=== PATIENT | male | born 1960 ===

== ENCOUNTER → 2023-10-12 | Emergency (ER) | payer BC, OTHER ==
[2023-10-12 13:50] LABS: Absolute Eosinophils 0.1 K/uL (0-0.5); Absolute Lymphocytes (CBC) 1.3 K/uL (0.7-4.9); Absolute Monocytes 0.7 K/uL (0.1-1.3); Absolute Neutrophil 6.8 K/uL (1.8-8.0); Basophils % 0.3 % (0-1.3); Eosinophils % 0.9 % (0-4.4); Hematocrit 43.5 % (39.6-49.0); Lymphocytes % 14.3 % (15.3-44.8); MCH 32.7 pg (27.0-35.0); MCHC 34.6 g/dL (32.0-36.0); MCV 94.6 fL (80-100); MPV 7.2 fL (7.6-11.3); Monocytes % 7.9 % (3.3-12.3); Neutrophils % 76.6 % (41.7-73.7); Platelets 353 thou/uL (152-406); Red Cell Distribution Width 12.9 % (12.1-15.2)
[2023-10-12 14:07] LABS: PT Prothrombin Time 11.4 SECONDS (9.5-12.5); PTT, Activated Partial Thromb 32.6 SECONDS (24.3-36.9); Protime INR 1.04
[2023-10-12 14:14] LABS: Albumin 4.1 g/dL (3.4-5.0); Albumin/Globulin Ratio 1.3 (1.1-1.8); Anion Gap 6.8 mEq/L (5.0-15.0); Bilirubin Direct 0.2 mg/dL (0-0.2); Bilirubin Indirect, Calculated 0.1 mg/dL (0.2-0.8); Bilirubin Total 0.3 mg/dL (0.2-1.0); Globulin 3.1 g/dL (2.3-3.5); Magnesium 2.2 mg/dL (1.6-2.4); Potassium 3.8 mEq/L (3.5-5.1); Protein, Total 7.2 g/dL (6.4-8.2); Troponin High Sensitivity 3.3 pg/mL (<58.9)
--- NOTE | 2023-10-12 14:38 | RAD REPORT ---
EXAM DESCRIPTION: CTAbdomen Pelvis W Contrast - 10/12/2023 2:29 pm CLINICAL HISTORY: Abdominal pain. ABD PAIN COMPARISON: No comparisons TECHNIQUE: Biphasic CT imaging of the abdomen and pelvis was performed with 100 ml non-ionic IV cont rast. All CT scans are performed using dose optimization technique as appropriate and may include automated exposure control or mA/KV adjustment according to patient size. FINDINGS: The lung bases are clear. The liver, spleen, pancreas, right adrenal gland and kidneys are within normal limits. Mild thickenin g of the left adrenal gland is present measuring up to 12 mm. No bowel obstruction, free air, free fluid or abscess. The appendix is normal. No evidence of signi ficant lymphadenopathy. Chronic bilateral spondylolysis at L5-S1 with mild anterolisthesis. IMPRESSION: No acute intra-abdominal or pelvic finding.
[2023-10-12 15:03] LABS: Urine Bilirubin NEGATIVE (Negative); Urine Blood Negative (Negative); Urine Clarity Clear (Clear); Urine Color Colorless (Yellow); Urine Glucose NEGATIVE (Negative); Urine Ketones NEGATIVE (Negative); Urine Microscopic Reflex YN NO UMIC; Urine Nitrite NEGATIVE (Negative); Urine Protein NEGATIVE (Negative); Urine Urobilinogen Normal (Normal); Urine pH 5.5 (5.0-7.0)
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
[2023-10-12 16:23] VITALS: BP 150/89; TEMP 97.1; O2SAT 100
--- NOTE | 2023-10-12 16:59 | EKG ---
Test Date: 2023-10-12 Test Time: 13:34:20 Mds Nurse: MB MEASUREMENT RESULTS: Intervals: Rate: 69 OR: 138 QRSD: 78 QT: 396 QTc: 424 [place]: P: 78 OR: 138 QRS: 74 T: 63 INTERPRETIVE STATEMENTS: Normal sinus rhythm Possible Left atrial enlargement Nonspecific ST abnormality Abnormal ECG No previous ECG available for comparison Electronically Signed On 10-12-23 16:59:20 CDT by Matias Hook
== END ==
LOC: ER 12:44
DX: R10.11 Right upper quadrant pain (principal); I10 Essential (primary) hypertension; F17.210 Nicotine dependence, cigarettes, uncomplicated
CPT/HCPCS: 93005; 85025; 80048; 36415; 83735; 85610; 80076; 85730; 81003; 84484; 74177; Q9967